=== PATIENT | male | born 1990 | race Caucasian/White ===

== ENCOUNTER 2018-01-27 09:39 | Emergency (ER) | payer SELFPAY ==
[~2018-01-27] VITALS: Ht 182.9 cm; Wt 110.0 kg
[2018-01-27 09:50] VITALS: BP 155/68; PULSE 70; RESP 16; TEMP 98.5; O2SAT 98
--- NOTE | 2018-01-27 10:26 | PD ---
HPI Chief Complaint: Skin Problem Time Seen by Provider: 10:07 Travel History International Travel<30 days: No Contact w/Intl Traveler<30days: No Traveled to known affect area: No History of Present Illness HPI 27-year-old male presents to the emergency room for evaluation of abscess to his left medial knee that started 2 days ago. Patient believes he may have gotten a splinter in the knee. He picked at it but it did not seem to improve symptoms. He reports pain most severe around the middle of the abscess with radiation several centimeters outward. Worse with palpation. No alleviating factors. He has not taken anything or done anything for symptoms. No chronic medical conditions or daily medications. He denies knee pain, loss of range of motion, paresthesias. He denies fever, chills, nausea, vomiting. History of IV drug use, last used 2 months ago. Denies injecting at the site of abscess. [facility] Social History Tobacco Use: Yes Allergies-Medications (Allergen,Severity, Reaction): Coded Allergies: No Known Allergies (Unverified , 01/27/18) Reported Meds & Prescriptions Reported Meds & Active Scripts Active Bactrim DS (Sulfamethoxazole-Trimethoprim) 800-160 Mg Tab 1 Tab PO BID Reported Lamictal (Lamotrigine) 25 Mg Tab 25 Mg PO BID Wellbutrin SR 12 HR (Bupropion HCl) 100 Mg Tab 100 Mg PO Q12HR Review of Systems Except as stated in HPI: all other systems reviewed are Neg Physical Exam Narrative GENERAL: Well-nourished, well-developed male no acute distress. Afebrile. Ambulatory. SKIN: Focused skin assessment warm/dry. There is an indurated area in the left medial knee which measures about 4 cm in diameter. It is fluctuant but there is no pointing or drainage. There is a zone of inflammation around it but no lymphangitis. HEAD: Normocephalic. EYES: No scleral icterus. No injection or drainage. NECK: Supple, trachea midline. No JVD or lymphadenopathy. CARDIOVASCULAR: Regular rate and rhythm without murmurs, gallops, or rubs. RESPIRATORY: Breath sounds equal bilaterally. No accessory muscle use. MUSCULOSKELETAL: No cyanosis. No obvious edema or effusion. Full range motion of the left knee. 2+ dorsalis pedis pulse in the left leg. Data Data Last Documented VS Vital Signs Date Time Temp Pulse Resp B/P (MAP) Pulse Ox O2 Delivery O2 Flow Rate FiO2 01/27/18 09:50 98.5 70 16 155/68 (97) 98 Orders Orders Lidocaine Pf 1% Inj (Xylocaine-Mpf 1% In (01/27/18 10:30) Ed Discharge Order (01/27/18 10:57) Wound Culture And Gram Stain (01/27/18 10:57) MDM Medical Decision Making Medical Screen Exam Complete: Yes Emergency Medical Condition: Yes Medical Record Reviewed: Yes Differential Diagnosis Abscess, cellulitis, septic arthritis, folliculitis Narrative Course 27-year-old otherwise healthy male presents to the emergency room for evaluation left medial knee pain, redness, and swelling for the past 2 days. Physical exam reveals abscess to the left medial knee with fluctuance. No evidence of sepsis. Abscess was drained, see procedure note for details. Patient discharged with prescription for Bactrim and told to follow-up with primary physician or return to the emergency room for worsening symptoms. He understands and agrees to plan. Procedures Procedure Narrative INCISION AND DRAINAGE OF ABSCESS: The area was prepped and was sterilely draped. A subcutaneous wheal of 1% % Xylocaine with a total number 4 mL was used to anesthetize the area properly. A number 11 scalpel was used to make a 1 cm incision across the area of the abscess. The abscess was drained, complex loculations were broken down, and irrigated with normal saline. Cultures were obtained. Sterile dressing applied. Diagnosis Primary Impression: Abscess Referrals: Primary Care Physician Additional Instructions: Rest and drink plenty of fluids. Take Bactrim as directed, until gone. Follow up with a primary care physician. Return to emergency room for worsening symptoms, as discussed. Scripts Sulfamethoxazole-Trimethoprim (Bactrim DS) 800-160 Mg Tab 1 TAB PO BID for Infection, #20 TAB 0 Refills Prov: Carissa Hernandez MD 01/27/18 Disposition: 01 DISCHARGE HOME Condition: Stable Lani Jacques Jan 27, 2018 10:26
[2018-01-27] MEDS ORDERED: LIDOCAINE HCL 1% PF 30 ML VIAL INFIL ONE (10:30)
[2018-01-27] MEDS ORDERED: BACT800T5 PO (10:45)
[2018-01-27] MEDS ORDERED: LAMO25 PO (10:53)
[2018-01-27] MEDS ORDERED: BUPR100CR PO (10:53)
== END 2018-01-27 11:18 | disposition home or self-care (01) ==
LOC: NEPK 09:39
DX: L02.416 Cutaneous abscess of left lower limb (principal); B95.62 Methicillin resistant Staphylococcus aureus infection as the cause of diseases classified elsewhere; Z72.0 Tobacco use; Z79.899 Other long term (current) drug therapy
CPT/HCPCS: 10060; 86403; 87070; 87186; 87205